=== PATIENT | male | born 1975 | race African-American/Black ===

== ENCOUNTER 2017-06-20 18:57 | Emergency (ER) | payer OTHER ==
[~2017-06-20] VITALS: Ht 185.4 cm; Wt 94.8 kg
[~2017-06-20 18:57] MED LIST: DILANTIN100 MG PO; HYDROCODON-ACE1 EAC7 PO; MOTRIN600 MG PO
[2017-06-20] MEDS ORDERED: TRAMADOL HCL50 MG PO (19:53)
[2017-06-20] MEDS ORDERED: MEDROL DOSEPAK4 MG PO (19:53)
[2017-06-20] MEDS ORDERED: FLEXERIL10 MG PO (19:53)
[2017-06-20 20:03] VITALS: BP 113/72
== END 2017-06-20 20:05 | disposition home or self-care (01) ==
LOC: EME 18:57
DX: M54.5 Low back pain (principal); G89.29 Other chronic pain; F17.200 Nicotine dependence, unspecified, uncomplicated
CPT/HCPCS: 99281; 99282

== ENCOUNTER 2017-07-02 19:16 | Emergency (ER) | payer OTHER ==
[~2017-07-02] VITALS: Ht 185.4 cm; Wt 95.3 kg
[~2017-07-02 19:16] MED LIST changes: +FLEXERIL10 MG PO; +MEDROL DOSEPAK4 MG PO; +TRAMADOL HCL50 MG PO
[2017-07-02 22:11] LABS: HEMATOCRIT 42.3 % (38.0-50.0); MCH 27.1 PG (29.0-34.0); MCHC 32.9 G/DL (30.0-36.0); MCV 82.6 FL (86-99); MEAN PLAT.VOLUME 9.9 uM^3 (9.0-12.4); NRBC (%) 0.2 /100 WBC (0-0); PLATELET COUNT 285 K/uL (156-360); RBC DIS.WIDTH-SD 42.2 % (39-53); RED BLOOD COUNT 5.12 M/uL (4.00-5.50); WHITE BLOOD COUNT 8.4 K/uL (4.1-10.2)
[2017-07-02 22:21] LABS: CHLORIDE 107 mEq/L (99-109); POTASSIUM 4.2 mEq/L (3.7-5.4); SODIUM 141 mEq/L (136-147)
[2017-07-02 22:23] LABS: GLUCOSE 84 mg/dL (70-99)
[2017-07-02 22:25] LABS: ANION GAP 10 MEQ/L (2-14); TOTAL BILIRUBIN 0.2 mg/dL (0.0-1.0)
[2017-07-02 22:27] LABS: ALKALINE PHOSPHATASE 162 IU/L (3-129); GFR ESTIMATE (CALCULATED) > 59 mL/min/
[2017-07-02 22:28] LABS: UREA NITROGEN (BUN) 15 mg/dL (9-23)
[2017-07-03 01:26] LABS: ADD MIUA? NO; BILIRUBIN NEGATIVE; BLOOD NEGATIVE; COLOR STRAW ((YELLOW)); GLUCOSE (STRIP) NEGATIVE; KETONES NEGATIVE; LEUKOCYTES NEGATIVE; NITRITE NEGATIVE; PROTEIN (STRIP) NEGATIVE; SPECIFIC GRAVITY 1.005 (1.000-1.030); UCUL ADDED? NO; UROBILINOGEN 0.2 MG/DL (0.2-1.0)
[2017-07-03] MEDS ORDERED: VALIUM5 MG PO (02:05)
[2017-07-03] MEDS ORDERED: INDOCIN50 MG PO (02:05)
[2017-07-03 02:37] VITALS: BP 126/87
== END 2017-07-03 02:39 | disposition home or self-care (01) ==
LOC: EME 19:16
DX: R10.31 Right lower quadrant pain (principal); R56.9 Unspecified convulsions
CPT/HCPCS: 74176; 80053; 81003; 85027; 99281; 99285; J1885; J2060; J7040

== ENCOUNTER 2017-10-08 15:28 | Emergency (ER) | payer OTHER ==
[~2017-10-08] VITALS: Ht 185.4 cm; Wt 99.3 kg
[~2017-10-08 15:28] MED LIST changes: +INDOCIN50 MG PO; +VALIUM5 MG PO
[2017-10-08 17:23] LABS: ADD MIUA? NO; BILIRUBIN NEGATIVE; BLOOD NEGATIVE; COLOR YELLOW ((YELLOW)); GLUCOSE (STRIP) NEGATIVE; KETONES NEGATIVE; LEUKOCYTES NEGATIVE; NITRITE NEGATIVE; PROTEIN (STRIP) NEGATIVE; SPECIFIC GRAVITY 1.012 (1.000-1.030); UROBILINOGEN 0.2 MG/DL (0.2-1.0)
[2017-10-08] MEDS ORDERED: NORCO 5/3251 TABLET PO (17:44)
[2017-10-08] MEDS ORDERED: LIDODERM 5% P1 PATCH TD (17:44)
[2017-10-08] MEDS ORDERED: NEURONTIN300 MG PO (17:44)
[2017-10-08] MEDS ORDERED: MEDROL DOSEPAK4 MG PO (17:44)
[2017-10-08 18:28] VITALS: BP 120/71
== END 2017-10-08 18:29 | disposition home or self-care (01) ==
LOC: EME 15:28
PROVIDERS: Nurse Practitioner Family
DX: M54.16 Radiculopathy, lumbar region (principal); M79.604 Pain in right leg; M79.605 Pain in left leg; Z87.891 Personal history of nicotine dependence
CPT/HCPCS: 81003; J1885; J3010; J7512

== ENCOUNTER 2017-11-03 12:46 | Emergency (ER) | payer OTHER ==
[~2017-11-03] VITALS: Ht 185.4 cm; Wt 100.5 kg
[~2017-11-03 12:46] MED LIST changes: +LIDODERM 5% P1 PATCH TD; +NEURONTIN300 MG PO; +NORCO 5/3251 TABLET PO
[2017-11-03 15:52] VITALS: BP 134/93
== END 2017-11-03 15:52 | disposition home or self-care (01) ==
LOC: EME 12:46 → RME 12:46
DX: S61.212A Laceration without foreign body of right middle finger without damage to nail, initial encounter (principal); S60.312A Abrasion of left thumb, initial encounter; W26.0XXA Contact with knife, initial encounter; Z23 Encounter for immunization; I10 Essential (primary) hypertension
CPT/HCPCS: 99281; 99285; S0020

== ENCOUNTER 2017-11-07 18:46 | Emergency (ER) | payer OTHER ==
[~2017-11-07] VITALS: Ht 185.4 cm; Wt 101.5 kg
[2017-11-07 19:18] VITALS: BP 112/81
== END 2017-11-07 20:10 | disposition left against medical advice (07) ==
LOC: EME 18:46
DX: Z53.21 Procedure and treatment not carried out due to patient leaving prior to being seen by health care provider (principal)
CPT/HCPCS: 99281

== ENCOUNTER 2018-04-08 17:57 | Emergency (ER) | payer OTHER ==
[~2018-04-08] VITALS: Ht 188 cm; Wt 99.0 kg
[2018-04-08] MEDS ORDERED: MOTRIN800 MG PO (19:44)
[2018-04-08] MEDS ORDERED: LIDODERM 5% P1 PATCH TD (19:44)
[2018-04-08] MEDS ORDERED: FLEXERIL10 MG PO (19:44)
[2018-04-08 20:07] VITALS: BP 148/107
== END 2018-04-08 20:07 | disposition home or self-care (01) ==
LOC: EME 17:57
DX: M54.42 Lumbago with sciatica, left side (principal); G89.29 Other chronic pain; I10 Essential (primary) hypertension; Z86.69 Personal history of other diseases of the nervous system and sense organs
CPT/HCPCS: 72100; 99281; 99284; J1885